=== PATIENT | male | born 2000 | race Caucasian/White ===

== ENCOUNTER 2021-09-22 13:31 | Emergency (ER) | payer MEDICAID, OTHER ==
[~2021-09-22] VITALS: Ht 175.3 cm; Wt 59.0 kg
[~2021-09-22 13:31] MED LIST: MONT10TA6 PO
--- NOTE | 2021-09-22 13:39 | NUR ---
ARRIVAL PRESENTED TO ED RM#5 AMBULATORY WITH C/O LEFT HAND LACERATION FROM NEW KNIFE HE RECEIVED FOR [place]. VS OBTAINED. DR. DANIEL NOTIFIED OF PATIENT ARRIVAL.
[2021-09-22 13:49] VITALS: BP_SYST 137; BP_SYST 167; BP_DIAS 82; BP_DIAS 98
[2021-09-22] MEDS ORDERED: TRIPLE ANTIBIOTIC OINTMENT TP ONE (14:16)
--- NOTE | 2021-09-22 14:20 | ER.PDOC ---
General Chief Complaint: Extremities Stated Complaint: CUT ON LEFT HAND Time seen by MD: 13:54 Source: patient Exam Limitations: no limitations History of Present Illness Initial Comments This is a 21-year-old man who comes emergency department after cutting his left hand on the thenar prominence about 30 minutes prior to coming here. He was try to open up present with his knife and it slipped lacerating the palmar side of his thenar prominence of the left hand. He denies any numbness or tingling. Occurred: just prior to arrival Where: home Severity: moderate Allergies: Coded Allergies: No Known Allergies (Unverified , 03/28/14) Home Meds Reported Medications Montelukast Sodium (SINGULAIR) 10 Mg Tablet, 1 TAB PO DAILY, #90 TAB 1 Refill 09/24/14 Past Medical History Medical History: no pertinent history Surgical History: no surgical history Social History Alcohol Use: rarely Drug Use: marijuana Review of Systems Constitutional: denies no symptoms reported, denies see HPI, denies chills, denies diaphoresis, denies fever, denies malaise, denies weakness, denies other EENTM: denies no symptoms reported, denies see HPI, denies eye pain, denies blurred vision, denies tearing, denies double vision, denies ear pain, denies ear discharge, denies nose pain, denies nose congestion, denies throat pain, denies throat swelling, denies mouth pain, denies mouth swelling, denies other Respiratory: denies no symptoms reported, denies see HPI, denies cough, denies orthopnea, denies shortness of breath, denies stridor, denies wheezing, denies other Cardiovascular: denies no symptoms reported, denies see HPI, denies chest pain, denies edema, denies palpitations, denies syncope, denies other Gastrointestinal: denies no symptoms reported, denies see HPI, denies abdominal pain, denies constipation, denies diarrhea, denies nausea, denies vomiting, denies other Genitourinary: denies no symptoms reported, denies see HPI, denies discharge, denies dysuria, denies frequency, denies hematuria, denies pain, denies other Musculoskeletal: denies no symptoms reported, denies see HPI, denies back pain, denies gout, denies joint pain, denies joint swelling, denies muscle pain, denies muscle stiffness, denies neck pain, denies other Skin: denies no symptoms reported, denies see HPI, denies change in color, denies change in hair/nails, denies dryness, denies lesions, denies lumps, denies rash, denies other Psychiatric/Neurological: denies no symptoms reported, denies see HPI, denies anxiety, denies depressed, denies emotional problems, denies headache, denies numbness, denies paresthesia, denies pre-existing deficit, denies seizure, denies tingling, denies tremors, denies weakness, denies other All Other Systems: Reviewed and Negative Physical Exam General Appearance: Alert, No Apparent Distress Hand: nml inspection, non-tender, see diagram (7.6 cm laceration to the thenar prominence of the left hand. No active bleeding noted. He has good flexion and extension with no tenderness involvement.) Wrist: nml inspection, non-tender, nml ROM Forearm/Elbow: nml inspection, non-tender, nml ROM Arm/Shoulder: nml inspection, non-tender, nml ROM Neuro/Vasc/Tendon: sensation nml, motor nml, no vascular compromise, tendon function nml Skin: warm/dry Head/ENT: nml inspection, pharynx nml Neck/Back: nml inspection, non-tender Respiratory: chest non-tender, breath sounds nml CVS: heart sounds normal Abdomen: non-tender, no organomegaly ED LACERATION WOUND REPAIR # of Wounds/Lacerations Presen: 1 Wound Location & Length (Requi: 7.6 Wound Length (cm): 7 Wound cleaned: betadine Distal NVT: neuro intact Anesthesia type: local Anesthesia: 1% Lidocaine Wound's Depth, Shape: linear, irregular Wound Explored: clean Tendon Intact: Yes Wound Debrided: minimal Wound Repaired With: sutures Suture Size/Type: 5:0 Suture Style: running Number of Sutures: 13 Layer Closure?: No Retention sutures placed: No Sterile Dressing Applied?: Yes Sling Applied?: No Results/Orders Results/Orders Vital Signs Date Time Temp Pulse Resp B/P (MAP) Pulse Ox O2 Delivery O2 Flow Rate FiO2 09/22/21 13:49 98.5 88 18 167/82 (110) 100 Room Air 09/22/21 13:49 98.5 71 18 97 09/22/21 13:49 98.5 71 18 ER DEPART Departure Time of Disposition: 14:19 Disposition: 01 HOME / SELF CARE / HOMELESS Impression: Primary Impression: Hand laceration Condition: Stable Patient Instructions: Sutured Wound Care Referrals: KOMAL CHA MD (PCP) PRIMARY CARE PROVIDER Additional Instructions: Sutures out in [address] Neosporin ointment on the wound after cleaning with warm soapy water daily. Duration or Time Spent with Pa: unknown Problem Qualifiers Primary Impression: Hand laceration Encounter type: initial encounter Foreign body presence: without foreign body Laterality: left Qualified Codes: S61.412A - Laceration without foreign body of left hand, initial encounter JOHNNIE DANIEL MD Sep 22, 2021 14:20
== END 2021-09-22 14:26 | disposition home or self-care (01) ==
LOC: ER 13:56
DX: S61.412A Laceration without foreign body of left hand, initial encounter (principal); F12.90 Cannabis use, unspecified, uncomplicated; W26.0XXA Contact with knife, initial encounter; Y93.89 Activity, other specified; Y92.89 Other specified places as the place of occurrence of the external cause; Y99.8 Other external cause status
CPT/HCPCS: 12002; 12004; 99282